=== PATIENT | female | born 1965 | race Caucasian/White ===

== ENCOUNTER 2022-09-19 08:57 | Day surgery (SDC) | payer BC ==
[~2022-09-19 08:57] MED LIST: BUPROPION HCL200 M2 PO
== END 2022-09-19 22:46 | disposition home or self-care (01) ==
DX: K40.90 Unilateral inguinal hernia, without obstruction or gangrene, not specified as recurrent (principal); D17.79 Benign lipomatous neoplasm of other sites

== ENCOUNTER 2023-10-01 11:55 | Day surgery (SDC) | payer BC ==
[2023-09-28 16:10] LABS: BASOPHILS ABSOLUTE AUTO 0.08 K/mm3 (0.00-0.23); BASOPHILS PERCENT AUTO 1 % (0-2); EOSINOPHILS ABSOLUTE AUTO 0.05 K/mm3 (0.00-0.68); EOSINOPHILS PERCENT AUTO 1 % (0-6); Hematocrit 37.5 % (33.0-51.0); Hemoglobin 12.2 g/dL (11.5-16.0); IMMATURE GRAN ABSOLUTE AUTO 0.03 K/mm3 (0.00-0.10); IMMATURE GRAN PERCENT AUTO 0 % (0-1); LYMPHOCYTES ABSOLUTE AUTO 2.39 K/mm3 (0.84-5.20); LYMPHOCYTES PERCENT AUTO 29 % (21-46); MONOCYTES ABSOLUTE AUTO 0.57 K/mm3 (0.16-1.47); MONOCYTES PERCENT AUTO 7 % (4-13); Mean Corpuscular HGB 29.3 pg (26.0-34.0); Mean Corpuscular HGB Conc 32.5 g/dL (31.5-36.5); Mean Corpuscular Volume 90 fL (80-100); Mean Platelet Volume 11.2 fL (9.1-12.4); NEUTROPHILS ABSOLUTE AUTO 5.08 K/mm3 (1.96-9.15); NEUTROPHILS PERCENT AUTO 62 % (41-73); Platelet Count 342 K/mm3 (150-400); RDW Coefficient Variation 12.5 % (11.7-14.2); RDW Standard Deviation 41.1 fL (35.1-46.3); Red Blood Cell Count 4.17 M/mm3 (3.80-5.20)
[~2023-10-01] VITALS: Ht 170.2 cm; Wt 70.4 kg
[2023-10-01] VITALS (31 sets, daily range): BP systolic 110–155; BP diastolic 57–81
--- NOTE | 2023-10-01 12:25 | NUR ---
PT TO DAY SURGERY FOR ROBOTIC LAPAROSCOPIC HYSTERECTOMY, BILATERAL SALPING-OOPHORECTOMY. PLAN OF CARE DISCUSSED. PT RIDE AT SIDE.
--- NOTE | 2023-10-01 13:13 | NUR ---
DONTE.VICKIE 2 IV ATTEMPS
[2023-10-01] MEDS ORDERED: Budeprion Xl300 MG PO ×2 (19:19)
[2023-10-02 02:00] VITALS: BP 126/67
[2023-10-02 04:10] LABS: BASOPHILS ABSOLUTE AUTO 0.03 K/mm3 (0.00-0.23); BASOPHILS PERCENT AUTO 0 % (0-2); EOSINOPHILS ABSOLUTE AUTO 0.01 K/mm3 (0.00-0.68); EOSINOPHILS PERCENT AUTO 0 % (0-6); Hematocrit 34.3 % (33.0-51.0); Hemoglobin 11.4 g/dL (11.5-16.0); IMMATURE GRAN ABSOLUTE AUTO 0.05 K/mm3 (0.00-0.10); IMMATURE GRAN PERCENT AUTO 0 % (0-1); LYMPHOCYTES ABSOLUTE AUTO 1.84 K/mm3 (0.84-5.20); LYMPHOCYTES PERCENT AUTO 16 % (21-46); MONOCYTES ABSOLUTE AUTO 0.72 K/mm3 (0.16-1.47); MONOCYTES PERCENT AUTO 6 % (4-13); Mean Corpuscular HGB 29.8 pg (26.0-34.0); Mean Corpuscular HGB Conc 33.2 g/dL (31.5-36.5); Mean Corpuscular Volume 90 fL (80-100); Mean Platelet Volume 11.2 fL (9.1-12.4); NEUTROPHILS ABSOLUTE AUTO 8.63 K/mm3 (1.96-9.15); NEUTROPHILS PERCENT AUTO 77 % (41-73); Platelet Count 282 K/mm3 (150-400); RDW Coefficient Variation 12.6 % (11.7-14.2); RDW Standard Deviation 41.3 fL (35.1-46.3); Red Blood Cell Count 3.83 M/mm3 (3.80-5.20); White Blood Cell Count 11.28 K/mm3 (4.00-11.30)
--- NOTE | 2023-10-02 04:31 | NUR ---
SHIFT SUMMARY NOC. PT ARRIVED TO THE FLOOR POST SURGERY AT APPROX 1920. 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 PT 4 ANTERIOR ABDOMEN LAP SITES ARE C/D/I. PT ARRIVED WITH OCAMPO INPLACE. OCAMPO REMOVED AT 2019 AND HAS BEEN VOIDING APPROPRIATELY. PT AMBULATES TO THE BATHROOM WELL AND IS TOLERATING PO INTAKE. DENIES N/V. PT MEDICATED FOR PAIN WITH RELIEF. PT HAS BEEN AWAKE FREQUENTLY BUT REPORTS RESTING WITH CALL LIGHT IN REACH.
[2023-10-02 06:56] VITALS: BP 116/60
--- NOTE | 2023-10-02 08:39 | NUR ---
ABD BINDER PLACED
[2023-10-02] MEDS ORDERED: ESTR2 PO (10:52)
[2023-10-02] MEDS ORDERED: PROM25 PO (10:53)
[2023-10-02] MEDS ORDERED: Percocet 5-3251 EACH PO (10:53)
[2023-10-02] MEDS ORDERED: IBUP800 PO (10:53)
[2023-10-02] MEDS ORDERED: SIME80CH PO (10:54)
--- NOTE | 2023-10-02 11:11 | NUR ---
DISCHARGE EATING, DRINKING, & VOIDING WELL. PAIN WELL CONTROLLED. INC WNL w/ ABD BINDER IN PLACE. RX TO [place]. ESCORTED OUT VIA WC.
== END 2023-10-02 11:13 | disposition home or self-care (01) ==
LOC: ORSCMMR 11:55 → ORD 13:30 → SURS 18:38 → ORSCMMR 10-02 11:13
PROVIDERS: Obstetrics & Gynecology
PROC: 0UT9FZZ Resection of Uterus, Via Natural or Artificial Opening With Percutaneous Endoscopic Assistance (ICD-10-PCS; principal; 2023-10-02)
DX: N95.0 Postmenopausal bleeding (principal); D25.0 Submucous leiomyoma of uterus; N80.9 Endometriosis, unspecified; R87.610 Atypical squamous cells of undetermined significance on cytologic smear of cervix (ASC-US); Z86.16 Personal history of COVID-19; Z79.899 Other long term (current) drug therapy
CPT/HCPCS: 58571; S2900; 36415; 84702; 85025; 86850; 86900; 86901; 88305; 88307; A9270; J0461; J0690; J1100; J1170; J1885; J2250; J2405; J2710; J3010; J7120